=== PATIENT | male | born 1985 | race Caucasian/White ===

== ENCOUNTER 2021-06-21 22:39 | Inpatient (IN) | payer MEDICAID ==
[~2021-06-21] VITALS: Ht 188 cm; Wt 131.5 kg
[~2021-06-21 22:39] MED LIST: OXYCODONE
[2021-06-21 23:19] LABS: Basophils # (auto) 0.1 10 ^3/uL (0-0.2); Eosinophils # (auto) 0.7 10 ^3/uL (0-0.8); Eosinophils % (auto) 6.4 % (0.0-7.0); Hematocrit 43.2 % (41.0-53.0); Hemoglobin 15.2 g/dL (13.5-17.5); Mean Corpuscular Hemoglobin 29.6 pg (28.0-32.0); Mean Corpuscular Hgb Conc. 35.1 g/dL (32.0-36.0); Mean Corpuscular Volume 84.4 fL (80.0-100.0); Monocytes # (auto) 0.5 10 ^3/uL (0-1.3); Monocytes % (auto) 5.2 % (0.0-12.0); Neutrophils % (auto) 68.4 % (37.0-80.0); Red Blood Cells 5.12 10^6/uL (4.5-5.90); Red Cell Distribution Width 13.2 % (11.8-14.3); White Blood Cell 10.3 10^3/uL (4.4-10.8)
[2021-06-21 23:34] LABS: Albumin 3.4 g/dL (3.4-5.0); Anion Gap 8 (5-15); BUN/Creatinine Ratio 8.8; Blood Urea Nitrogen 9 mg/dL (7-18); Carbon Dioxide 27 mmol/L (21-32); Chloride 106 mmol/L (98-107); GFR African American 108 mL/min; GFR Non-African American 89 mL/min; Glucose 131 mg/dL (74-106); INR 1.02 (0.9-1.15); Magnesium 2.4 mg/dL (1.6-2.6); Partial Thromboplastin Time 24.8 sec (23.6-33.0); Potassium 4.1 mmol/L (3.5-5.1); Sodium 141 mmol/L (136-145)
[2021-06-21 23:40] LABS: Alanine Aminotransferase 35 U/L (16-61); Alkaline Phosphatase 74 U/L (45-117); Aspartate Aminotransferase 23 U/L (15-37); Bilirubin, Total 0.3 mg/dL (0.2-1.0); Total Protein 7.6 g/dL (6.4-8.2)
[2021-06-22] MEDS ORDERED: ONDANSETRON HCL 4 MG/2 ML VIAL IV ONE (02:45)
[2021-06-22] MEDS ORDERED: HYDROmorphone HCL 2 MG/ML VL IV ONE (02:45)
[2021-06-22] MEDS ORDERED: ONDANSETRON HCL 4 MG/2 ML VIAL IV PRN ×2 (03:45→13:30)
[2021-06-22] MEDS ORDERED: MORPHINE SULFATE INJECTION 2 MG/ML SYRG IV PRN (03:45)
[2021-06-22] MEDS ORDERED: hydrALAZINE HCL 20 MG/ML VL IV PRN (03:45)
[2021-06-22] MEDS ORDERED: LORazepam 2MG/ML-1ML VIAL IV PRN ×3 (03:45→22:30)
[2021-06-22] MEDS ORDERED: DOCUSATE SOD 100 MG CAP PO PRN (03:45)
[2021-06-22] MEDS ORDERED: HYDROcodone-ACET 5/325MG TAB PO PRN (03:45)
[2021-06-22] MEDS ORDERED: NITROGLYCERIN 0.4 MG SL TAB SL PRN (03:45)
[2021-06-22] MEDS ORDERED: ACETAMINOPHEN 325 MG TAB PO PRN (03:45)
[2021-06-22] MEDS: SODIUM CHLOR 0.9% PF (SALINE LOCK) 10ML VIAL/SYR IV SCH ×3 (06:02→22:23)
[2021-06-22 06:49] LABS: Basophils # (auto) 0 10 ^3/uL (0-0.2); Basophils % (auto) 0.3 % (0.0-2.0); Eosinophils # (auto) 0 10 ^3/uL (0-0.8); Eosinophils % (auto) 0.2 % (0.0-7.0); Hematocrit 42.6 % (41.0-53.0); Hemoglobin 14.7 g/dL (13.5-17.5); Lymphocytes # (auto) 0.7 10 ^3/uL (0.4-5.4); Lymphocytes % (auto) 5.3 % (10.0-50.0); Mean Corpuscular Hemoglobin 29.2 pg (28.0-32.0); Mean Corpuscular Hgb Conc. 34.4 g/dL (32.0-36.0); Mean Corpuscular Volume 84.9 fL (80.0-100.0); Monocytes # (auto) 0.5 10 ^3/uL (0-1.3); Monocytes % (auto) 3.7 % (0.0-12.0); Neutrophils # (auto) 11.7 10 ^3/uL (1.6-8.6); Neutrophils % (auto) 90.5 % (37.0-80.0); Nucleated Red Blood Cells % 0.1 %; Red Blood Cells 5.01 10^6/uL (4.5-5.90); Red Cell Distribution Width 13.3 % (11.8-14.3); White Blood Cell 12.9 10^3/uL (4.4-10.8)
[2021-06-22] MEDS: MORPHINE SULFATE 4 MG/ML SYR/VIAL IV PRN ×4 (07:00→20:13)
[2021-06-22 07:04] LABS: Albumin 3.2 g/dL (3.4-5.0); Calcium 8.9 mg/dL (8.5-10.1); Potassium 3.9 mmol/L (3.5-5.1)
[2021-06-22 07:09] LABS: Bilirubin, Total 0.4 mg/dL (0.2-1.0); Total Protein 7.3 g/dL (6.4-8.2)
[2021-06-22] MEDS ORDERED: POM (09:25)
[2021-06-22] MEDS ORDERED: ZOLM5TAB4 PO (09:25)
[2021-06-22] MEDS ORDERED: ONDA-144 PO (09:25)
[2021-06-22] MEDS: ASCORBIC ACID 500 MG TAB PO SCH ×2 (10:00→22:23)
[2021-06-22] MEDS: ZINC SULFATE 220mg CAP or TAB PO SCH (10:00)
[2021-06-22] MEDS: MULTIPLE VITAMIN TAB PO SCH (10:00)
[2021-06-22] MEDS: ENOXAPARIN SOD 40 MG/0.4 ML SYRINGE SC SCH (10:00)
[2021-06-22] MEDS: FAMOTIDINE (10MG/ML) 2ML VL IV SCH (10:16)
[2021-06-22] MEDS ORDERED: SUCCINYLCHOLINE CHLORIDE 20 MG/ML 10ML VIAL IV ONE (12:38)
[2021-06-22] MEDS ORDERED: fentaNYL CITRATE 100 MCG/2 ML VL ONE (12:43)
[2021-06-22] MEDS ORDERED: MIDAZOLAM HCL 2MG/2ML 2ml VIAL (1mg/ml) ONE (12:52)
[2021-06-22 13:00] VITALS: BP 131/90
[2021-06-22] MEDS ORDERED: HYDROmorphone HCL 2 MG/ML VL IV PRN (13:30)
[2021-06-22] MEDS ORDERED: PROPOFOL 10 MG/ML 20 ML IV ONE (13:32)
[2021-06-22 16:43] VITALS: BP 118/79
[2021-06-22] MEDS ORDERED: FENTANYL SL SCH (20:30)
[2021-06-22] MEDS: FENTANYL XX SCH (21:45)
[2021-06-22 22:00] VITALS: BP 120/63
[2021-06-23] MEDS: FENTANYL XX SCH ×3 (00:45→07:00)
[2021-06-23 05:00] VITALS: BP 116/73
[2021-06-23] MEDS: SODIUM CHLOR 0.9% PF (SALINE LOCK) 10ML VIAL/SYR IV SCH ×2 (05:08→17:06)
[2021-06-23 05:29] LABS: Basophils # (auto) 0.1 10 ^3/uL (0-0.2); Basophils % (auto) 0.5 % (0.0-2.0); Eosinophils # (auto) 0.2 10 ^3/uL (0-0.8); Eosinophils % (auto) 2.2 % (0.0-7.0); Hematocrit 39.9 % (41.0-53.0); Hemoglobin 13.8 g/dL (13.5-17.5); Lymphocytes # (auto) 1.3 10 ^3/uL (0.4-5.4); Lymphocytes % (auto) 13.1 % (10.0-50.0); Mean Corpuscular Hemoglobin 29.5 pg (28.0-32.0); Mean Corpuscular Hgb Conc. 34.7 g/dL (32.0-36.0); Mean Corpuscular Volume 85.1 fL (80.0-100.0); Monocytes # (auto) 0.7 10 ^3/uL (0-1.3); Monocytes % (auto) 6.6 % (0.0-12.0); Neutrophils # (auto) 7.7 10 ^3/uL (1.6-8.6); Neutrophils % (auto) 77.6 % (37.0-80.0); Nucleated Red Blood Cells % 0.1 %; Red Blood Cells 4.69 10^6/uL (4.5-5.90); Red Cell Distribution Width 12.9 % (11.8-14.3)
[2021-06-23 05:39] LABS: Potassium 3.9 mmol/L (3.5-5.1)
[2021-06-23 05:45] LABS: Albumin 3.2 g/dL (3.4-5.0); BUN/Creatinine Ratio 13.2; Bilirubin, Total 0.5 mg/dL (0.2-1.0); Calcium 8.7 mg/dL (8.5-10.1); Total Protein 7.2 g/dL (6.4-8.2)
[2021-06-23] MEDS ORDERED: FENTANYL XX SCH (06:45)
[2021-06-23 09:00] VITALS: BP 135/83
[2021-06-23] MEDS ORDERED: FENTANYL XX PRN (09:30)
[2021-06-23] MEDS ORDERED: levETIRAcetam 500 MG TAB PO SCH (10:00)
[2021-06-23] MEDS: FAMOTIDINE (10MG/ML) 2ML VL IV SCH (10:18)
[2021-06-23] MEDS: ZINC SULFATE 220mg CAP or TAB PO SCH (10:18)
[2021-06-23] MEDS: MULTIPLE VITAMIN TAB PO SCH (10:19)
[2021-06-23] MEDS: ASCORBIC ACID 500 MG TAB PO SCH (10:20)
[2021-06-23] MEDS: ENOXAPARIN SOD 40 MG/0.4 ML SYRINGE SC SCH (10:22)
[2021-06-23 13:00] VITALS: BP 132/84
[2021-06-23 16:47] VITALS: BP 140/89
== END 2021-06-23 17:00 | disposition home or self-care (01) | DRG 342 ==
LOC: EDBD 22:39 → ER 22:39 → EDUNIT# 22:39 → TELE 06-22 03:42 → TELE-WESTW 06-22 08:34
PROVIDERS: ADMIT Nurse Practitioner Family; ATTEND Internal Medicine
PROC: 0RSKXZZ Reposition Left Shoulder Joint, External Approach (ICD-10-PCS; principal; 2021-06-22 12:36)
DX: S43.015A Anterior dislocation of left humerus, initial encounter (principal); G40.409 Other generalized epilepsy and epileptic syndromes, not intractable, without status epilepticus; Z20.822 Contact with and (suspected) exposure to COVID-19; E66.9 Obesity, unspecified; S02.2XXA Fracture of nasal bones, initial encounter for closed fracture; F84.5 Asperger's syndrome; W18.39XA Other fall on same level, initial encounter; G89.29 Other chronic pain; M54.50 Low back pain, unspecified; Z68.35 Body mass index [BMI] 35.0-35.9, adult; Y99.8 Other external cause status; Z88.0 Allergy status to penicillin; Y93.89 Activity, other specified; Z79.899 Other long term (current) drug therapy; Y92.512 Supermarket, store or market as the place of occurrence of the external cause
CPT/HCPCS: 36415; 70450; 70486; 71045; 71250; 72125; 73030; 76000; 80053; 83036; 83735; 84484; 85025; 85610; 85730; 87426; 93005; 95819; 96374; 96375; G0378; J0330; J2250; J2405; J2704; J3490; J7060

== ENCOUNTER 2022-04-03 23:01 | Emergency (ER) | payer MEDICAID ==
[~2022-04-03 23:01] MED LIST changes: +ONDA-144 PO; -OXYCODONE; +POM; +ZOLM5TAB4 PO
[2022-04-04 00:31] LABS: Basophils # (auto) 0.1 10 ^3/uL (0-0.2); Basophils % (auto) 0.4 % (0.0-2.0); Eosinophils # (auto) 0.1 10 ^3/uL (0-0.8); Eosinophils % (auto) 0.5 % (0.0-7.0); Hematocrit 49.2 % (41.0-53.0); Hemoglobin 17.2 g/dL (13.5-17.5); Lymphocytes % (auto) 7.7 % (10.0-50.0); Mean Corpuscular Hemoglobin 29.3 pg (28.0-32.0); Mean Corpuscular Volume 83.9 fL (80.0-100.0); Monocytes # (auto) 0.5 10 ^3/uL (0-1.3); Monocytes % (auto) 3.6 % (0.0-12.0); Neutrophils # (auto) 10.9 10 ^3/uL (1.6-8.6); Neutrophils % (auto) 87.8 % (37.0-80.0); Nucleated Red Blood Cells % 0.2 %; Red Blood Cells 5.86 10^6/uL (4.5-5.90); Red Cell Distribution Width 13.6 % (11.8-14.3); White Blood Cell 12.4 10^3/uL (4.4-10.8)
[2022-04-04 00:52] LABS: Albumin 4.4 g/dL (3.4-5.0); BUN/Creatinine Ratio 11.8; Calcium 9.9 mg/dL (8.5-10.1); Potassium 4.3 mmol/L (3.5-5.1)
[2022-04-04 00:54] LABS: Bilirubin, Total 0.7 mg/dL (0.2-1.0); Total Protein 8.8 g/dL (6.4-8.2)
== END 2022-04-04 02:41 | disposition left against medical advice (07) ==
LOC: ER 23:01
DX: M79.10 Myalgia, unspecified site (principal); R11.10 Vomiting, unspecified; Z53.21 Procedure and treatment not carried out due to patient leaving prior to being seen by health care provider
CPT/HCPCS: 36415; 80053; 83690; 85025

== ENCOUNTER 2025-07-05 03:57 | Emergency (ER) | payer MEDICAID ==
[~2025-07-05] VITALS: Ht 182.9 cm; Wt 127.2 kg
[~2025-07-05 03:57] MED LIST changes: +ZOLM5TAB33 PO; -ZOLM5TAB4 PO
[2025-07-05] MEDS ORDERED: FAMOTIDINE (10MG/ML) 2ML VL IV ONE (06:00)
[2025-07-05] MEDS ORDERED: SODIUM CHLORIDE 0.9% 1,000 ML IVB ONE (06:00)
[2025-07-05] MEDS ORDERED: ONDANSETRON HCL 4 MG/2 ML VIAL IV ONE (06:00)
[2025-07-05 06:03] VITALS: BP 141/95; PULSE 54; RESP 16; TEMP 97.9; O2SAT 99
--- NOTE | 2025-07-05 06:07 | ED.PDOC ---
History of Present Illness HPI Comments 40-year-old, obese male presents with chief complaint of chest pain, shortness of breath, nausea, and vomiting, since 2100, last night. Denies any further symptoms. Chief Complaint: Shortness of Breath Time Seen by MD: 03:30 Primary Care Provider: THOMAS Gutierrez Notes: Nurses Notes, Medications, Allergies Allergies: Coded Allergies: Penicillins (Verified Allergy, Unknown, 06/22/21) Home Meds Reported Medications Zolmitriptan (Zomig) 5 Mg Tab, 5 MG PO Q2HP PRN for FOR HEADACHE, TAB 06/22/21 Ondansetron (Zofran) 4 Mg Tab, 8 MG PO Q4HP PRN for NAUSEA / VOMITING, MG 06/22/21 Patients Own Medication (PATIENTS OWN MEDICATION) . PTS OWN MED-OBTAIN FROM PT AND SEND TO RX DRUG:FENTANYL 650 MCG LOSANGES SUGAR FREE FREQ: 1 - 2 LOSANGES Q 3 HR FOR BACK PAIN RX# EXP: DATE DISP: TECH: [facility]: 06/22/21 Patients Own Medication (PATIENTS OWN MEDICATION) . PTS OWN MED-OBTAIN FROM PT AND SEND TO RX DRUG: FENTANYL 60 MG/ML SOLUTION FREQ: 2-5 ML Q 4 HR PRN BACK PAIN RX# EXP: DATE DISP: TECH: [facility]: 06/22/21 Information Source: Patient Mode of Arrival: Ambulatory Severity: Moderate Timing: Hours Duration: Since onset Prehospital treatment: None Past Medical History PAST MEDICAL HISTORY: Denies Surgical History: Denies all surgeries Family History Family History: Unknown Social History Smoker: Non-Smoker Alcohol: Denies ETOH Use Drugs: Denies Drug Use Lives In: Home All Other Systems: Reviewed and Negative (As per HPI) Physical Exam General Appearance: Moderate Distress, Obese HEENT: Normal ENT Inspection, Pharynx Normal, TMs Normal Neck: Full Range of Motion, Non-Tender, Normal, Normal Inspection Respiratory: Chest Non-Tender, Lungs Clear, No Accessory Muscle Use, No Respiratory Distress, Normal Breath Sounds Cardiovascular: No Edema, No JVD, No Murmur, No Gallop, Normal Peripheral Pul ses, Regular Rate/Rhythm Breast Exam: Deferred Gastrointestinal: No Organomegaly, Non Tender, No Pulsatile Mass, Normal Bowel Sounds, Soft Genitalia: Deferred Pelvic: Deferred Rectal: Deferred Extremities: No calf tenderness, Normal capillary refill, Normal inspection, Normal range of motion, Non-tender, No pedal edema Musculoskeletal : Apperance: Normal Neurologic: Alert, specialty development consultant II-XII nml as Tested, No Motor Deficits, Normal Affect, Normal Mood, No Sensory Deficits Cerebellar Function: Normal Reflexes: Normal Skin: Dry, Normal Color, Warm Lymphatic: No Adenopathy Was a procedure done? Was a procedure done?: No Differential Dx Considerations may include: Mi, PE, ACS, URI, CAD, pneumonia, angina, anxiety, among others X-Ray, Labs, Meds, VS Vital Signs Date Time Temp Pulse Resp B/P (MAP) Pulse Ox O2 Delivery O2 Flow Rate FiO2 07/05/25 06:03 97.9 54 16 141/95 (110) 99 97.9 07/05/25 06:01 98.1 50 20 139/72 100 98.1 07/05/25 05:10 Room Air* 0 21 07/05/25 04:07 54 Lab Test 07/05/25 04:36 Range/Units White Blood Count 13.9 H 4.4-10.8 10^3/uL Red Blood Count 5.21 4.5-5.90 10^6/uL Hemoglobin 15.3 13.5-17.5 g/dL Hematocrit 43.9 41.0-53.0 % Mean Corpuscular Volume 84.4 80.0-100.0 fL Mean Corpuscular Hemoglobin 29.5 28.0-32.0 pg Mean Corpuscular Hemoglobin Concent 34.9 32.0-36.0 g/dL Red Cell Distribution Width 13.8 11.8-14.3 % Platelet Count 256 140-450 10^3/uL Mean Platelet Volume 9.1 6.9-10.8 fL Neutrophils (%) (Auto) 86.2 H 37.0-80.0 % Lymphocytes (%) (Auto) 6.6 L 10.0-50.0 % Monocytes (%) (Auto) 6.4 0.0-12.0 % Eosinophils (%) (Auto) 0.4 0.0-7.0 % Basophils (%) (Auto) 0.4 0.0-2.0 % Neutrophils # (Auto) 12.0 H 1.6-8.6 10 ^3/uL Lymphocytes # (Auto) 0.9 0.4-5.4 10 ^3/uL Monocytes # (Auto) 0.9 0-1.3 10 ^3/uL Eosinophils # (Auto) 0.1 0-0.8 10 ^3/uL Basophils # (Auto) 0.1 0-0.2 10 ^3/uL Nucleated Red Blood Cells 0.0 % Troponin I High Sensitivity 3 L </=54 ng/L Time of 1ST Reevaluation: 04:00 Reevaluation 1ST: Unchanged Patient Education/Counseling: Diagnosis, Treatment Family Education/Counseling: Diagnosis, Treatment SEPSIS Sepsis Screen Date sepsis recognized/suspect: Jul 05, 2025 Time Sepsis recognized/suspect: 06 Recent Procedure: No On Antibiotic Therapy: No Respiratory Rate >20: No Heart Rate >90: No Temp<36 C (96.8 F) or >38.3 C: No SBP <90 or MAP <65 mmHG: No New Acute Mental Status Change: No Is the patient on CPAP, BIPAP,: No Physician Orders Electrocardigram (07/05/25 05:55) Vital Signs Date Time Temp Pulse Resp B/P (MAP) Pulse Ox O2 Delivery O2 Flow Rate FiO2 07/05/25 06:03 97.9 54 16 141/95 (110) 99 97.9 07/05/25 06:01 98.1 50 20 139/72 100 98.1 07/05/25 05:10 Room Air* 0 21 07/05/25 04:07 54 Laboratory Tests Test 07/05/25 04:36 White Blood Count 13.9 10^3/uL (4.4-10.8) H Departure 1 Departure Time of Disposition: 06:00 Impression: Primary Impression: Chest pain Disposition: 07 LEFT AWOL/ELOPED Condition: Guarded Discharged With: Self Critical Care Note Critical Care Time?: No Stability Stability form required: No Heart Score Heart Score: Heart Score Response (Comments) Value History Slightly Suspicious 0 EKG Normal 0 Age <45 0 Risk Factors No known risk factors 0 Troponin N/A 0 Total 0 I personally scribed for SHANNAN SCOTT MD ([email or web address]) on 07/05/25 at 06:07. Electronically submitted by Patrick Willett [email or web address]). SHANNAN SCOTT MD Jul 05, 2025 06:07
--- NOTE | 2025-07-05 06:25 | ECG ---
[facility] Test Date: 2025-07-05 Test Time: 04:07:34 Pat Name: MICHAEL JIAN Department: Room: Gender: Solid Waste Manager: : 1985 Requested By: SHANNAN SCOTT Order Number: [id number] Reading MD: Hany Marshall Measurements Intervals [place] Rate: 54 P: 18 CA: 132 QRS: -21 QRSD: 115 T: 35 QT: 437 QTc: 415 Interpretive Statements Sinus rhythm Nonspecific intraventricular conduction delay Lateral infarct, age indeterminate Electronically Signed On 07-05-2025 13:57:28 PST by Hany Marshall Please click the below link to view image of tracing.
[2025-07-05 06:33] LABS: Hematocrit 43.9 % (41.0-53.0); Hemoglobin 15.3 g/dL (13.5-17.5); Mean Corpuscular Hemoglobin 29.5 pg (28.0-32.0); Mean Corpuscular Volume 84.4 fL (80.0-100.0); Nucleated Red Blood Cells % 0.0 %
== END 2025-07-05 06:41 | disposition left against medical advice (07) ==
LOC: ER 03:57
DX: R07.9 Chest pain, unspecified (principal); R11.2 Nausea with vomiting, unspecified; R06.02 Shortness of breath; Z88.0 Allergy status to penicillin
CPT/HCPCS: 36415; 84484; 85025; 93005